=== PATIENT | female | born 1975 | race Hispanic/Latino ===

== ENCOUNTER 2020-11-29 | Emergency (ER) | payer SELFPAY ==
[2020-11-29] MEDS ORDERED: CEPHALEXIN500 MG PO (22:05)
== END 2020-11-30 00:18 | disposition home or self-care (01) | DRG 563 ==
PROC: 2W3JX1Z Immobilization of Right Finger using Splint (ICD-10-PCS; principal; 2020-11-29)
DX: S62.626A Displaced fracture of middle phalanx of right little finger, initial encounter for closed fracture (principal); W22.8XXA Striking against or struck by other objects, initial encounter; Y92.89 Other specified places as the place of occurrence of the external cause; Y99.0 Civilian activity done for income or pay